=== PATIENT | male | born 1960 | race Caucasian/White ===

== ENCOUNTER 2017-08-29 00:36 | Day surgery (SDC) | payer BC ==
[~2017-08-29] VITALS: Ht 177.8 cm; Wt 77.1 kg
[~2017-08-29 00:36] MED LIST: BENZ2TAB48 PO; HALO5TAB17 PO; MEGE40TA19 PO; OLA5 PO
[2017-08-29] MEDS ORDERED: PROPOFOL EMUL(*) 10MG/ML 20 ML 40 ML ONE (07:42)
[2017-08-29] MEDS ORDERED: MIDAZOLAM 2 MG/2 ML VIAL IVP ONE (12:00)
[2017-08-29] MEDS ORDERED: LIDOCAINE/SOD BICARB 8.4% SYR ID ONE (12:00)
[2017-08-29] MEDS ORDERED: NORMOSOL R SOLN(*) 1000 ML BAG 1,000 ML IV PRN (12:00)
[2017-08-29 12:17] VITALS: BP 141/87
[2017-08-29 13:59] VITALS: BP 99/64
[2017-08-29 14:15] VITALS: BP 114/77
[2017-08-29 14:35] VITALS: BP 75/68
== END 2017-08-29 14:45 | disposition home or self-care (01) ==
LOC: OR 00:36
PROVIDERS: ATTEND Family Medicine
DX: Z12.11 Encounter for screening for malignant neoplasm of colon (principal)
CPT/HCPCS: 00812; 45378; J2704

== ENCOUNTER 2017-12-05 09:00 | Outpatient (RCR) | payer BC ==
--- NOTE | 2017-11-01 14:33 | PT INITIAL EVALUATION ---
MEDICAL DIAGNOSIS: C21.8 Parkinsonism TREATMENT DIAGNOSIS: G20 PD, altered gait and balance DATE OF ONSET: 10/21/17 SUBJECTIVE: Will Clifton presents to PT for altered gait, balance, reduced function for Parkinsonism. he hasn't seen a neurologist yet and hasn't started on PD medicine. he notes he started to get tremors in both hands and both legs six months ago. He lives alone in a single level home, no steps. Will notes getting out of a car, in/out of his tub is difficult due to balance, he has stiffness in walking, so has stopped running and exercising, and his handwriting has become shaky. He's left-handed. He denies pain. REHAB PROBLEM LIST: Decreased Strength, Endurance, Balance, Function, Altered Gait PREVIOUS MEDICAL HISTORY: PD (tremors B UE's, LE's for 6 months), anxiety OCCUPATION: Unemployed OBJECTIVE: Posture: Heels 4" apart, resting hand tremors. ROM: PROM LE's WNL. Strength: L DF 2+/5, R 3/5. Mobility: Independent. Gait: Dynamic Gait Index 21, not a fall risk. Will ambulates with a pause in stride when turning his head left, clears a 8" curb easily, turns with control. He has reduced push off L, but at a fast cadance has B UE swing WNL. Balance: Rodriguez Balance Assessment 51/56. Tandem stand 25 seconds R, 20 second L, single leg stand 4 seconds L, R. Other Objective Findings: After 10 minutes of LSVT BIG exercise, O2 on room air 92%, HR 107. ASSESSMENT: Will Clifton presents with Modified Amadeo and Yahr Stage 2 of PD. He reported he was less stiff after LSVT BIG exercise. Short Term Goals 4 weeks: Will reports he can transfer out of a car smoothly and quickly, walk without trunk and LE stiffness, write in a larger, smoother manner, transfer in/out of tub with normal balance control, transfers sit to stand from low surface easily. Patient's Goals Alleviate stiffness in walking, exercise hard, improve writing and balance. PLAN: Patient to be seen for LSVT BIG therapy with Neuromuscular Re-ed, Gait Trg/Balance Trg 4x/Week for 4 Weeks Thank you for this referral. If you have any questions, comments, or concerns about this report or plan, please contact me at . [facility]
--- NOTE | 2017-11-27 08:20 | PT PLAN OF CARE ---
Physician: Jagruti Soto PA-C Patient is being seen: 4x/week Therapist: Margaret Alvarez, ROMINA Medical Diagnosis: C21.8 Parkinsonism Treatment Diagnosis: G20 PD, altered gait and balance Date of Onset: 10/21/17 Date of Initial Evaluation: 11/01/17 Date patient was last seen: 11/26/17 Number of treatments: 11 Number of cancellations/No shows: 0 INTERVENTIONS: LSVT BIG Neuromuscular Re-ed and Gait Trg/Balance Trg GOALS: 4 weeks: Will reports he can transfer out of a car smoothly and quickly (met), walk without trunk and LE stiffness (progressing), write in a larger, smoother manner (progressing), transfer in/out of tub with normal balance control (met), transfers sit to stand from low surface easily (met). PATIENT'S GOAL: Alleviate stiffness in walking, exercise hard, improve writing and balance. all progressing Patient Compliance: Excellent Prognosis: Excellent Reasons for continuing therapy: S: Will relates he's walking daily at [place] without difficulty, transfers in/out of his tub easily now. Posture: Heels 4" apart, resting hand tremors. Gait: Will now ambulates with normal step length and can ambulates with change of speed easily. he turns with control, climbs hills and grass easily. Tinetti Gait and Balance /. Balance: Rodriguez Balance Assessment 56/56, a 5 point improvement. Mobility: Independent. Other: Shaguftas handwriting is still small and scratchy. He limbers up more quickly now with LSVT BIG exercises. A/P: Will Clifton is improving rapidly with LSVT BIG exercises. If you agree, we'll continue through this week and if he feels he can continue independently, I'll then DC PT to HEP. Thank you. YENNY
--- NOTE | 2017-12-10 14:24 | PT PLAN OF CARE ---
Physician: Jagruti Soto PA-C Patient is being seen: 4x/week Therapist: Margaret Alvarez, ROMINA Medical Diagnosis: C21.8 Parkinsonism Treatment Diagnosis: G20 PD, altered gait and balance Date of Onset: 10/21/17 Date of Initial Evaluation: 11/01/17 Date patient was last seen: 12/05/17 Number of treatments: 17 Number of cancellations/No shows: 0 INTERVENTIONS: Neuromuscular Re-ed Gait Trg/Balance Trg GOALS: 4 weeks: Will reports he can transfer out of a car smoothly and quickly ( met), walk without trunk and LE stiffness (met), write in a larger, smoother manner (not met), transfer in/out of tub with normal balance control (met), transfers sit to stand from low surface easily (met). PATIENT'S GOAL: Alleviate stiffness in walking (met), exercise hard (met), improve writing (not met) and balance (met). Patient Compliance: Excellent Prognosis: Excellent Reasons for discontinuing therapy: S: Will Clifton has completed LSVT BIG and relates his mobility is much improved. He'd like to hike with [facility] [employer] [facility] [employer]. O: Gait/Mobility: Will now ambulates with longer step length, normal arm swing B, feet passing each other, with balance control on uneven surfaces, hills , curbs and stairs. He's able to stand from a low surface easily and demonstrates normal tub transfers. Dynamic Gait Index . Balance: Will demonstrates normal balance reactions, is able to stand on one leg with control 10+ seconds, L and R. He can arise off the floor without assistance. Other: Shaguftas handwriting remains shaky and small, the only item in his LSVT BIG program that didn't change. A/P: Will Clifton has progressed better than average with LSVT BIG training. I recommend he participate in hiking with [employer] ( Fridays) as well as his LSVT BIG daily home exercise program (HEP). I'll DC PT to HEP. LSVT BIG research shows the trainings are effective for 6 months. I recommend Will return in 6 months for a LSVT BIG tune up. Thank you. YENNY
== END 2017-12-05 18:00 | disposition home or self-care (01) ==
LOC: PT 09:00
PROVIDERS: ATTEND Family Medicine
DX: G20 Parkinson's disease (principal); F41.9 Anxiety disorder, unspecified
CPT/HCPCS: 97162

== ENCOUNTER 2018-03-04 10:26 | Outpatient (RCR) | payer BC ==
[~2018-03-04] VITALS: Ht 177.8 cm; Wt 61.2 kg
--- NOTE | 2018-03-04 14:31 | Medical Nutrition Therapy ---
Nutrition Anthropometrics Height (Inches): 70 (stated) Weight (Pounds): 135 (with shoes on standing scale) BMI: 19.3 Redd Nutrition Score: Redd Nutrition Risk Score: Dietary Referral Nutrition Risk Factors: Nutrition Risk Comment: Nutrition/Food History Breakfast: oatmeal with pro powder, 1/c can slim fast Lunch: 1/2 bage with pg 1/c pop, or tomatoe amna, veggie, pop Dinner: yogurt, milk, banana Snacks: fruit punch, pie Nutritional Education Nutrition Education Topic: Other (diet for wt gain ) Learning Barriers: Emotional (case management specialist states pt has anxiety) Learning Readiness: Interested Teaching Methods: Discussion, Handout Response to Teaching: Verbalize understanding Teaching Recipient: Patient, Legal Guardian Nutrition Counseling: late entry of 03/03: Pt/annual campaign manager states pt has trouble with jaw that he can't open it well and jaw hurts if has to chew very much. Pt has lost from a wt of 170# in Jun 2017 but has been more significant past 3 weeks when he has been consuming mostly liqids. annual campaign manager states pt has anxiety issues which may be contibuting to jaw pain. Pt also is very active and paces throughout the day. Pt tracked intake past 3 day with averge of 1578. Calculated pt's kcal needs at current wt as 1900. Recommend pt try for 2200- 2400 kcal to help with wt gain. Developed meal plan with pt and case management specialist of of 6 meal/snacks per day with ~ 2600 kcal using mostly liquids with some soft foods. Pt will consume nutr supplment at 6:00 am and 10:00 Pm, have pro fort oatmeal with cream or half and half at 10:00AM. At 1:00 PM pt will eat high fat yogurt and fruit juice or v8 fuision. Pt will make a high kcal smoothie 3:30 and will have pie, milkshake, or other foods as desired at 7:30. Nutrition Monitoring & Eval RD Patient Assessment Time: [address] Assessment Type: RD Education Nutritional Comment: Povided 60 minutes education for wt gain following significant unplanned wt loss. Copies To Copies to: CHRISTAL MIN BETH Mar 04, 2018 14:31
[2018-03-25] MEDS ORDERED: ZIPR40CA14 PO (20:24)
[2018-03-25] MEDS ORDERED: FLUV150C PO (20:24)
[2018-03-25] MEDS ORDERED: PROP20TA56 PO (20:24)
[2018-03-27] MEDS ORDERED: ZIPR40CA12 PO (10:43)
[2018-04-01] MEDS ORDERED: DOCU-416 PO (08:58)
[2018-04-01] MEDS ORDERED: FLUV100T21 PO ×2 (08:59→09:00)
[2018-04-01] MEDS ORDERED: CHLO25TA19 PO (09:02)
[2018-04-01] MEDS ORDERED: IBUP-1671 PO (09:04)
== END 2018-04-08 ==
LOC: DIET 10:26
PROVIDERS: ATTEND Nurse Practitioner Psychiatric/Mental Health
DX: Z71.3 Dietary counseling and surveillance (principal); R63.4 Abnormal weight loss; Z68.1 Body mass index [BMI] 19.9 or less, adult; R68.84 Jaw pain
CPT/HCPCS: 97802

== ENCOUNTER → 2018-03-20 | Outpatient (REF) | payer BC | LOC: ZZSENDIN 16:28 | PROVIDERS: ATTEND Family Medicine | DX: R63.4 Abnormal weight loss (principal) | CPT/HCPCS: 85651 ==

== ENCOUNTER 2018-03-25 15:29 | Inpatient (IN) | payer BC ==
[~2018-03-25] VITALS: Ht 177.8 cm; Wt 56.7 kg
[2018-03-25 16:00] VITALS: BP 128/82
[2018-03-25] MEDS ORDERED: PROP20TA56 PO (20:24)
[2018-03-25] MEDS ORDERED: ZIPR40CA14 PO (20:24)
[2018-03-25] MEDS ORDERED: FLUV150C PO (20:24)
[2018-03-25 20:25] VITALS: BP 121/81
[2018-03-25] MEDS: fluvoxaMINE MALEATE 50 MG TAB PO SCH (20:44)
[2018-03-25] MEDS ORDERED: HALOPERIDOL 1 MG TAB PO ONE (21:00)
[2018-03-26] MEDS: IBUPROFEN 600 MG TAB PO PRN (05:20)
[2018-03-26 06:02] VITALS: BP 105/76
[2018-03-26 10:10] VITALS: BP 113/75
[2018-03-26] MEDS ORDERED: BISACODYL 5 MG TABEC PO ONE (11:25)
[2018-03-26] MEDS: fluvoxaMINE MALEATE 50 MG TAB PO SCH ×2 (11:47→20:26)
[2018-03-26 14:12] VITALS: BP 112/69
[2018-03-26] MEDS: DOCUSATE SODIUM 100 MG CAP PO SCH (20:26)
[2018-03-26 20:30] VITALS: BP 107/69
[2018-03-26] MEDS ORDERED: HALOPERIDOL 5 MG TAB PO SCH (21:00)
[2018-03-27 05:20] VITALS: BP 114/77
[2018-03-27] MEDS: DOCUSATE SODIUM 100 MG CAP PO SCH ×2 (08:18→21:09)
[2018-03-27] MEDS: fluvoxaMINE MALEATE 50 MG TAB PO SCH ×2 (08:18→21:09)
[2018-03-27] MEDS ORDERED: ZIPR40CA12 PO (10:43)
--- NOTE | 2018-03-27 10:43 | BHS Progress Note ---
S - Subjective Progress Notes Subjective Patient reporting difficulty sleeping last PM, staff noted patient to be peering down hallway in a rather bazaar manner. Patient agrees to try thorazine, for better control of symptoms of poor sleep and less EPS. Patient himself denies any other symptoms of psychiatric concern. No self harm, and no para-suicidal behaviors. Suicidal Ideation: None Homicidal Ideation: None [facility] - Objective Physical Exam Vital Signs Vital Signs Date Time Temp Pulse Resp B/P (MAP) Pulse Ox O2 Delivery O2 Flow Rate FiO2 03/27/18 05:20 98.6 71 16 114/77 (89) 92 Room Air Muscle Strength and Tone: Other (hesitant gate at times) Gait and Station: Steady [facility] Medications Reviewed: Side Effects, Benefits of Medication, Risks Allergies Reviewed: Yes Mental Status Exam General Appearance: Casual, Good Eye Contact, Cooperative, Polite, Good Interaction; No Tearful, No Psychomotor Agitation, No Psychomotor Retardation; Bizarre Mannerisms (some); No Tics Speech: Clear, Spontaneous, Normal Rate, Normal Rhythm, Normal Volume, Normal Tone; No Delayed, No Slurred, No Garbled, No Rambling, No Inappropriate Mood: Euthymic (reports okay) Affect: Neutral, Anxious Thought Process: No Loose Associations, No Flight of Ideas Thought Content: No Suicidal Ideation, No Homicidal Ideation, No Delusions; Auditory Halllucinations (likely minimal, patient denies); No Visual Halluc inations, No Thought Broadcasting, No Ideas of Reference, No Obsessions, No Compulsions Sensorium: Clear Cognition: Alert & Oriented-Person, Alert & Oriented-Place, Alert & Oriented- Time, Utngc-Krllmnza-Gqpjyfasx Memory: Immediate, Recent, Remote Intelligence: Average Insight Judgment: Fair (limited currently, but much improvement over the recent years overall. ) [facility] Assessment and Plan Cqzj-le-Bqsy Encounter Date: Mar 27, 2018 Fsss-ug-Wbvg Encounter Time: 09:00 [facility] Plan: Necessary Precautions, Individual/Group Therapy, Admin/Titrate Meds, Educate Patient Tobacco Medications: Not Appropriate Condition Multpiple Antipsychotics Used: No Problems: (1) Generalized anxiety disorder Status: Chronic (2) Paranoid schizophrenia Status: Chronic Condition 1. will stop haldol. 2. start thorazine. TAN VO MD Mar 27, 2018 10:43
[2018-03-27 11:25] VITALS: BP 112/67
--- NOTE | 2018-03-27 13:36 | SCHAAF H&P ---
DATE OF ADMISSION: March 25, 2018 Time of this dictation is approximately 0900 hours on March 26, 2018. PRESENTING PROBLEM, CHIEF COMPLAINT Patient under guardianship brought in for admission for exacerbation of psychotic illness and anxiety. HISTORY OF PRESENT ILLNESS This is a 57-year-old male living independently in the [facility]. Patient has a history of paranoia schizophrenia as well as generalized anxiety disorder. Patient most recently on the [facility] Unit in 2010. At that time, patient was suffering from significant and severe psychosis. Since that time, patient has not required anymore hospitalizations at [facility] or anywhere else on an inpatient unit. Patient has been doing relatively well and following up with outpatient providers. Recent medication changes from Haldol to Geodon by outpatient provider may have implicated recent exacerbations of both anxiety and return of psychosis. Patient noted to have some superficial wounds in that patient apparently engaged in self-harm with X-Acto knife. When asked why the patient did this, he said "I was angry and cut myself", patient quickly pointing out it was not suicidal and "I do not feel depressed, I was just angry". Patient noted to have his father, whom he had lived with for many years, pass away in 2015. Patient, other than that, reporting "I have a problem with anxiety", although patient also reporting that it is much improved since this provider knew the patient on an outpatient basis years ago. Patient denying any symptoms of depression or tenzin. When asked about any psychotic symptoms, patient reported none but then reported that people are coming in his home. Patient seeming to try to give a logical explanation for how he knows that these unknown entities are coming into his home by explaining there is feces on the bathroom floor and that patient had been left money in his drawer. Patient denying any other symptoms of psychiatric concern. MENTAL HEALTH HISTORY The patient was hospitalized in 2010 here for initial hospitalization of what appeared to be a longstanding psychosis. Patient had been living at home at that time. Since that time, patient continues to do well. Patient is following up currently with Paola Padron, his outpatient medication provider and [facility] has been following patient closely in the home. Patient had a suicide attempt where he had cut his wrist in the remote history and also patient had been admitted to psychiatric wards in the past prior to this last hospitalization here at [facility] in 2010. FAMILY PSYCHIATRIC HISTORY Past reports indicate possible schizophrenic type illness in the patient's great grandmother on the mother's side. Mother and father had some history of alcohol abuse independence as well and no suicides are believed to have occurred in the family history. PAST MEDICAL HISTORY In 2010, the patient was noted to have extremely limited gait as a result of psychotic condition. Patient seems to have some hesitant gait now as well. These may or may not be related to complications from longstanding antipsychotic therapy. Patient reported a seizure in 1986 not related to alcohol detoxification. SOCIAL HISTORY The patient was born in [place] and raised in [place]. Parents were at time of his . Past reports indicate his mother in 1986 and patient's father is believed to have passed within the last year. He was the only child in his family. He continues to live at home now. It is not known if patient is on disability right now but patient does have a guardian. Patient was a high school graduate, was reported to be an average to above-average student according to his father in the past. 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 Patient is not believed to have a significant other now. It is believed he is heterosexual. He has never and has no children. LEGAL HISTORY No significant legal history. SUBSTANCE ABUSE HISTORY Patient had reported in the past heavy drinking until approximately 2001 or 2002. He does not use cigarettes and does not use alcohol now. He denies any other past or present history of substance abuse. PHYSICAL EXAMINATION Please see emergency room note, notable for thin 57-year-old male who appears approximately stated age. No acute medical distress. Vital signs at the time of admission: Temperature 97.8, respiratory rate 20, blood pressure 115/72, pulse oximetry 96% on room air. LABORATORY DATA CBC notable for white blood cells slightly low at 4.3, hematocrit 41.1 and low. Chemistry panel overall unremarkable. TSH 2.03. Urinalysis unremarkable on toxicology screen. Positive for tricyclics (this is likely a false positive) and negative for other substances of abuse with a nondetectable serum alcohol level. MENTAL STATUS EXAMINATION GENERAL APPEARANCE, BEHAVIOR AND ATTITUDE: This is thin, adequately groomed male, 57 years old who appears roughly stated age. No gross psychomotor agitation or retardation noted. Bizarre mannerisms that have improved significantly since patient was last seen by this provider on an outpatient basis a few years ago. SPEECH: Largely within normal limits. MOOD: Patient stated good. Outpatient [facility] states that patient may have had decompensating mood prior to admission. AFFECT: Neutral, overall mood-congruent. THOUGHT PROCESSES: Appeared goal-directed and fairly logical. Patient agreeing to stay on the Unit to get help, although patient having difficulty describing what he would need help for. No loose associations or flight of ideas were detected. THOUGHT CONTENT: Patient denying auditory or visual hallucinations, although it is possible that some minimal hallucinations remain in this patient who had long-term schizophrenic process. Patient denying any suicidal or homicidal ideations. SENSORIUM: Clear. COGNITION: Alert and oriented to person, place and time, mostly to situation. MEMORY: Immediate, recent and remote estimated intact. INTELLIGENCE: Historically average, based on previous knowledge of this patient. INSIGHT AND JUDGMENT: Currently limited and requiring further evaluation. ASSESSMENT This is a 57-year-old male very cooperative on the unit. Patient having longstanding chronic persisting mental illness. Patient being followed appropriately in the community. Recent exacerbation of illness and recent med change from Haldol to Geodon. We will continue to evaluate and make medication changes as necessary. DIAGNOSES Generalized anxiety disorder, rule out obsessive compulsive disorder. Patient has a history of schizophrenia and supportive treatment in the community. PLAN 1. Admit to the Unit. 2. Necessary precautions will be implemented. 3. The patient will participate in individual and group therapy. 4. Medications will be titrated accordingly. 5. Collateral information to be obtained as necessary. 6. Estimated length of stay five to seven days. MTDD
[2018-03-27] MEDS: IBUPROFEN 600 MG TAB PO PRN (15:59)
[2018-03-27] MEDS ORDERED: chlorproMAZINE 25 MG TAB PO SCH (21:00)
[2018-03-28 02:04] VITALS: BP 118/78
[2018-03-28] MEDS: fluvoxaMINE MALEATE 50 MG TAB PO SCH ×2 (08:08→21:32)
[2018-03-28] MEDS: DOCUSATE SODIUM 100 MG CAP PO SCH ×2 (08:08→21:32)
--- NOTE | 2018-03-28 11:15 | BHS Progress Note ---
BHS - Subjective Progress Notes Subjective Patient reporting some over sedation from thorazine last PM. Will decrease dose to 50 mg tonight. Patient notably able to eat breakfast today, but continues to complain of right sided TMJ located pain, patient has history of poor dentition as well, and significant weight loss. Will get imaging today. Will have occult stool blood in this chronically constipated patient. Patient states constipation is now resolved. Will continue treatment. Suicidal Ideation: None Homicidal Ideation: None [facility] - Objective Physical Exam Vital Signs Vital Signs Date Time Temp Pulse Resp B/P (MAP) Pulse Ox O2 Delivery O2 Flow Rate FiO2 03/28/18 02:04 98.4 64 118/78 (91) 92 Room Air 03/27/18 05:20 16 Hematology Test 03/25/18 13:29 03/26/18 13:29 Iron Level 55 ug/dl (49-181) Total Iron Binding Capacity 241 ug/dl (261-497) Percent Iron Saturation 22.8 % Ferritin 431 ng/ml (18-464) Vitamin B12 Level 493 pg/mL (180-914) Folate >22.3 ng/mL (>=5.9) Free Thyroxine 1.07 ng/dl (0.78-2.19) Free Triiodothyronine 2.0 pg/mL (2.4-4.2) Vitamin D 1,25-Dihydroxy 53.1 pg/mL (19.9-79.3) Chemistry Test 03/25/18 13:29 03/26/18 13:29 Iron Level 55 ug/dl (49-181) Total Iron Binding Capacity 241 ug/dl (261-497) Percent Iron Saturation 22.8 % Ferritin 431 ng/ml (18-464) Vitamin B12 Level 493 pg/mL (180-914) Folate >22.3 ng/mL (>=5.9) Free Thyroxine 1.07 ng/dl (0.78-2.19) Free Triiodothyronine 2.0 pg/mL (2.4-4.2) Vitamin D 1,25-Dihydroxy 53.1 pg/mL (19.9-79.3) Muscle Strength and Tone: Other (hesitant gate at times) Gait and Station: Steady [facility] Medications Reviewed: Side Effects, Benefits of Medication, Risks Allergies Reviewed: Yes Mental Status Exam General Appearance: Casual, Good Eye Contact, Cooperative, Polite, Good Interaction; No Tearful, No Psychomotor Agitation, No Psychomotor Retardation; Bizarre Mannerisms (some); No Tics Speech: Clear, Spontaneous, Normal Rate, Normal Rhythm, Normal Volume, Normal Tone; No Delayed, No Slurred, No Garbled, No Rambling, No Inappropriate Mood: Euthymic (reports okay, but tired from thorazine) Affect: Neutral, Anxious Thought Process: Goal Directed; No Loose Associations, No Flight of Ideas Thought Content: No Suicidal Ideation, No Homicidal Ideation, No Delusions; Auditory Halllucinations (likely minimal, patient denies); No Visual Hallucinations, No Thought Broadcasting, No Ideas of Reference, No Obsessions, No Compulsions Sensorium: Clear Cognition: Alert & Oriented-Person, Alert & Oriented-Place, Alert & Oriented- Time, Hyrgt-Vettpstj-Yldryrqrt Memory: Immediate, Recent, Remote Intelligence: Average Insight Judgment: Fair (limited currently, but much improvement over the recent years overall. ) [facility] Assessment and Plan Lvyz-pr-Odem Encounter Date: Mar 28, 2018 Oxqk-tq-Jabo Encounter Time: 10:00 [facility] Plan: Necessary Precautions, Individual/Group Therapy, Admin/Titrate Meds, Educate Patient Tobacco Medications: Not Appropriate Condition Multpiple Antipsychotics Used: No Problems: (1) Generalized anxiety disorder Status: Chronic (2) Paranoid schizophrenia Status: Chronic Condition 1. decrease thorazine to 50mg. 2. imaging of head/jaw today TAN VO MD Mar 28, 2018 11:15
--- NOTE | 2018-03-28 13:50 | RADIOLOGY IMAGING REPORT ---
FACILITY: [facility] [place] PATIENT NAME: Will Clifton : 1960 MR: [id number] V: [id number] EXAM DATE: ORDERING PHYSICIAN: TAN VO TECHNOLOGIST: Location: [facility] [place] Patient: Will Clifton : 1960 Visit/Account:[id number] Date of Sevice: 03/28/[address] scan without contrast COMPARISONS: None ADDITIONAL PERTINENT HISTORY: Altered mental status TECHNIQUE: Multiple axial images were obtained from the skull base to the vertex without IV contrast . One of the following dose optimization techniques was utilized in the performance of this exam: Aut omated exposure control; adjustment of the mA and/or kV according to the patient's size; or use of an iterative reconstruction technique. Specific details can be referenced in the facility's radiology CT exam operational policy. FINDINGS: Midline shift: Negative Ventricles: Negative Brain parenchyma: Patchy hypoattenuation within the periventricular and subcortical white matter, no nspecific but likely representing small vessel ischemic change on a chronic basis. No intraparenchym al hemorrhage or mass effect. Extra-axial spaces: Mild cerebral atrophy. Intracranial vasculature: Cavernous internal carotid and distal vertebral artery calcifications. Ot herwise negative Osseous structures: Negative Paranasal sinuses and mastoid air cells: Negative Surrounding soft tissues and orbits: Negative IMPRESSION: 1. Age related changes as described above. 2. No evidence of acute intracranial pathology. Report Dictated By: Oumar Orta MD at 03/28/2018 1:44 PM Report E-Signed By: Oumar Orta MD at 03/28/2018 1:46 PM [id number]
--- NOTE | 2018-03-28 13:54 | RADIOLOGY IMAGING REPORT ---
FACILITY: PATIENT NAME: Will Clifton : 1960 MR: [id number] V: [id number] EXAM DATE: ORDERING PHYSICIAN: TAN VO TECHNOLOGIST: Location: [facility] Patient: Will Clifton : 1960 Visit/Account:[id number] Date of Sevice: 03/28/2018 CT face without contrast Comparison: None Additional pertinent history: Right jaw tightness and pain. Difficulty chewing TECHNIQUE: Multiple axial images were obtained through the facial bones without IV contrast. Whitley l and sagittal reformatted images were obtained off the axial source data. One of the following dose optimization techniques was utilized in the performance of this exam: Automated exposure control; ad justment of the mA and/or kV according to the patient's size; or use of an iterative reconstruction technique. Specific details can be referenced in the facility's radiology CT exam operational policy . FINDINGS: Zygomas/zygomatic arches:Negative Krueger of the orbits: Negative Orbital floors: Negative Krueger of the paranasal sinuses: Negative Pterygoid plates: Negative Nasal bones/nasal septum: Moderate nasal septal deviation to the right. Otherwise negative Maxilla: Negative Mandible: Negative Orbits: Negative Paranasal sinuses: Negative Surrounding soft tissues: Negative IMPRESSION: 1. No evidence of acute bony abnormality involving the facial bones. 2. No other surrounding abnormality noted. Report Dictated By: Oumar Orta MD at 03/28/2018 1:46 PM Report E-Signed By: Oumar Orta MD at 03/28/2018 1:51 PM WSN:[id number]
[2018-03-28 14:00] VITALS: BP 102/58
[2018-03-28] MEDS: IBUPROFEN 600 MG TAB PO PRN (16:11)
[2018-03-28] MEDS: chlorproMAZINE 25 MG TAB PO SCH (21:32)
[2018-03-29 06:45] VITALS: BP 110/62
[2018-03-29] MEDS: fluvoxaMINE MALEATE 50 MG TAB PO SCH ×2 (08:26→20:43)
[2018-03-29] MEDS: DOCUSATE SODIUM 100 MG CAP PO SCH ×2 (08:26→20:43)
--- NOTE | 2018-03-29 09:45 | BHS Progress Note ---
[facility] - Subjective Progress Notes Subjective "I'm good." Reports slept well last night. His jaw hurts this am from clenching and he requests Ensure with meals. He denies hallucinations. Denies SI/HI. Suicidal Ideation: None Homicidal Ideation: None [facility] - Objective Physical Exam Vital Signs Vital Signs 03/28/18 03/29/18 14:00 06:45 Temp 98.2 Pulse 69 Resp 16 B/P (MAP) 110/62 (78) Pulse Ox 92 O2 Delivery Room Air Muscle Strength and Tone: Other (hesitant gate at times) Gait and Station: Steady [facility] Medications Reviewed: Side Effects, Benefits of Medication, Risks Allergies Reviewed: Yes Mental Status Exam General Appearance: Casual, Good Eye Contact, Cooperative, Polite, Good Interaction; No Tearful, No Psychomotor Agitation, No Psychomotor Retardation; Bizarre Mannerisms (some); No Tics Speech: Clear, Spontaneous, Normal Rate, Normal Rhythm, Normal Volume, Normal Tone; No Delayed, No Slurred, No Garbled, No Rambling, No Inappropriate Mood: Euthymic (reports okay, but tired from thorazine) Affect: Neutral, Anxious Thought Process: Goal Directed; No Loose Associations, No Flight of Ideas Thought Content: No Suicidal Ideation, No Homicidal Ideation, No Delusions; Auditory Halllucinations (likely minimal, patient denies); No Visual Halluc inations, No Thought Broadcasting, No Ideas of Reference, No Obsessions, No Compulsions Sensorium: Clear Cognition: Alert & Oriented-Person, Alert & Oriented-Place, Alert & Oriented- Time, Jkrqn-Ryccgayg-Zjumqnebp Memory: Immediate, Recent, Remote Intelligence: Average Insight Judgment: Fair (limited currently, but much improvement over the recent years overall. ) [facility] Assessment and Plan Xjsa-[id number]-[id number] Encounter Date: Mar 29, 2018 Shmm-zt-Srxl Encounter Time: 08:30 [facility] Plan: Necessary Precautions, Individual/Group Therapy, Admin/Titrate Meds, Educate Patient Tobacco Medications: Not Appropriate Condition Multpiple Antipsychotics Used: No Problems: (1) Paranoid schizophrenia Status: Chronic (2) Generalized anxiety disorder Status: Chronic JAMAICA VEGA NP Mar 29, 2018 09:45
[2018-03-29 13:30] VITALS: BP 92/52
[2018-03-29 17:25] VITALS: BP 110/74
[2018-03-29] MEDS: chlorproMAZINE 25 MG TAB PO SCH (20:43)
[2018-03-29 23:52] VITALS: BP 118/76
[2018-03-30] MEDS ORDERED: chlorproMAZINE 25 MG TAB PO ONE (00:50)
[2018-03-30] MEDS: DOCUSATE SODIUM 100 MG CAP PO SCH ×2 (08:35→20:49)
[2018-03-30] MEDS: fluvoxaMINE MALEATE 50 MG TAB PO SCH ×2 (08:35→20:49)
[2018-03-30 09:00] VITALS: BP 112/64
--- NOTE | 2018-03-30 09:42 | BHS Progress Note ---
[facility] - Subjective Progress Notes Subjective "I couldn't sleep but then they gave me more medicine around 1 o'clock and then I slept." Client continues to believe that people had been putting money in his drawers at home, however he denies that these types of things are occurring here at the hospital. Denies a/v hallucinations. He is denying thoughts of self harm. Suicidal Ideation: None Homicidal Ideation: None [facility] - Objective Physical Exam Vital Signs Vital Signs 03/29/18 23:52 Temp 98.9 Pulse 80 Resp 14 B/P (MAP) 118/76 (90) Pulse Ox 93 O2 Delivery Room Air Muscle Strength and Tone: Other (hesitant gate at times) Gait and Station: Steady [facility] Medications Reviewed: Side Effects, Benefits of Medication, Risks Allergies Reviewed: Yes Mental Status Exam General Appearance: Casual, Good Eye Contact, Cooperative, Polite, Good Interaction; No Tearful, No Psychomotor Agitation, No Psychomotor Retardation; Bizarre Mannerisms (some); No Tics Speech: Clear, Spontaneous, Normal Rate, Normal Rhythm, Normal Volume, Normal Tone; No Delayed, No Slurred, No Garbled, No Rambling, No Inappropriate Mood: Euthymic (reports okay, but tired from thorazine) Affect: Neutral, Anxious Thought Process: Goal Directed; No Loose Associations, No Flight of Ideas Thought Content: No Suicidal Ideation, No Homicidal Ideation; Delusions (believes money and food were being placed in his home, putting feces on his floor), Auditory Halllucinations (likely minimal, patient denies); No Visual Hallucinations, No Thought Broadcasting, No Ideas of Reference, No Obsessions, No Compulsions Sensorium: Clear Cognition: Alert & Oriented-Person, Alert & Oriented-Place, Alert & Oriented- Time, Bmunw-Ntgavdyt-Xtjvmdfvk Memory: Immediate, Recent, Remote Intelligence: Average Insight Judgment: Fair (limited currently, but much improvement over the recent years overall. ) [facility] Assessment and Plan Ahqb-nl-Fnzk Encounter Date: Mar 30, 2018 Ioga-nw-Fzhe Encounter Time: 09:25 [facility] Plan: Necessary Precautions, Individual/Group Therapy, Admin/Titrate Meds, Educate Patient Tobacco Medications: Not Appropriate Condition Multpiple Antipsychotics Used: No Problems: (1) Paranoid schizophrenia Status: Chronic (2) Generalized anxiety disorder Status: Chronic JAMAICA VEGA NP Mar 30, 2018 09:42
[2018-03-30] MEDS: chlorproMAZINE 25 MG TAB PO SCH (20:48)
[2018-03-30 20:58] VITALS: BP 102/62
[2018-03-31 05:35] VITALS: BP 105/63
[2018-03-31] MEDS: DOCUSATE SODIUM 100 MG CAP PO SCH ×2 (07:53→20:34)
[2018-03-31] MEDS: fluvoxaMINE MALEATE 50 MG TAB PO SCH ×2 (07:53→20:34)
[2018-03-31] MEDS ORDERED: fluvoxaMINE MALEATE 50 MG TAB PO ONE (10:15)
--- NOTE | 2018-03-31 11:15 | BHS Progress Note ---
[facility] - Subjective Progress Notes Subjective Patient symptoms continue to improve, will tentatively plan on discharge tomorrow to be followed by [facility] program, and other outpatient providers. Patient denies any other complaints today. Will increase luvox to 100 AM and 150 QHS. Suicidal Ideation: None Homicidal Ideation: None [facility] - Objective Physical Exam Vital Signs Vital Signs Date Time Temp Pulse Resp B/P (MAP) Pulse Ox O2 Delivery O2 Flow Rate FiO2 03/31/18 05:35 99.0 65 105/63 (77) 93 Room Air 03/30/18 09:00 14 Muscle Strength and Tone: Other (hesitant gate at times) Gait and Station: Steady [facility] Medications Reviewed: Side Effects, Benefits of Medication, Risks Allergies Reviewed: Yes Mental Status Exam General Appearance: Casual, Good Eye Contact, Cooperative, Polite, Good Interaction; No Tearful, No Psychomotor Agitation, No Psychomotor Retardation; Bizarre Mannerisms (some); No Tics Speech: Clear, Spontaneous, Normal Rate, Normal Rhythm, Normal Volume, Normal Tone; No Delayed, No Slurred, No Garbled, No Rambling, No Inappropriate Mood: Euthymic (reports okay,) Affect: Neutral, Anxious Thought Process: Goal Directed; No Loose Associations, No Flight of Ideas Thought Content: No Suicidal Ideation, No Homicidal Ideation; Delusions (belie ves money and food were being placed in his home, putting feces on his floor), Auditory Halllucinations (likely minimal, patient denies); No Visual Hallucinations, No Thought Broadcasting, No Ideas of Reference, No Obsessions, No Compulsions Sensorium: Clear Cognition: Alert & Oriented-Person, Alert & Oriented-Place, Alert & Oriented-Time, Fqnoc-Rhgxquff-Yeilcijci Memory: Immediate, Recent, Remote Intelligence: Average Insight Judgment: Fair (limited currently, but much improvement over the recent years overall. ) [facility] Assessment and Plan Hxta-uw-Dhao Encounter Date: Mar 31, 2018 Yuhy-cd-Hmzx Encounter Time: 10:00 [facility] Plan: Necessary Precautions, Individual/Group Therapy, Admin/Titrate Meds, Educate Patient Tobacco Medications: Not Appropriate Condition Multpiple Antipsychotics Used: No Problems: (1) Generalized anxiety disorder Status: Chronic (2) Paranoid schizophrenia Status: Chronic Condition 1. increase luvox. 2. tentative plan for discharge in AM. TAN VO MD Mar 31, 2018 11:15
[2018-03-31 14:40] VITALS: BP 121/79
[2018-03-31] MEDS: chlorproMAZINE 25 MG TAB PO SCH (20:34)
[2018-03-31 22:34] VITALS: BP 102/55
[2018-04-01 06:14] VITALS: BP 116/74
[2018-04-01] MEDS: DOCUSATE SODIUM 100 MG CAP PO SCH (08:07)
[2018-04-01] MEDS ORDERED: DOCU-416 PO (08:58)
[2018-04-01] MEDS ORDERED: FLUV100T21 PO ×2 (08:59→09:00)
[2018-04-01] MEDS ORDERED: fluvoxaMINE MALEATE 50 MG TAB PO SCH (09:00)
[2018-04-01] MEDS ORDERED: CHLO25TA19 PO (09:02)
[2018-04-01] MEDS ORDERED: IBUP-1671 PO (09:04)
--- NOTE | 2018-04-02 14:18 | SCHAAF DISCHARGE ---
DATE OF ADMISSION: March 25, 2018 DATE OF DISCHARGE: April 01, 2018 ATTENDING PHYSICIAN Cruz Jorgensen MD Patient was seen at approximately 0900 hours on April 01, 2018 for note concerning this dictation. FINAL DIAGNOSES 1. Generalized anxiety disorder. 2. History of agoraphobia. 3. Schizophrenia Patient known to have good outpatient support through [facility]. . REASON FOR ADMISSION This is a 57-year-old male very pleasant throughout his stay and took an active role in his treatment. Patient is noted to be admitted secondary to superficial cuts to left side of neck. Patient engaged in superficial cutting after an episode of anger with an [employer] knife at his home where he lives. Patient historically doing much better than patient has done in the past overall. However, cuts to neck elicited concern. Patient was brought to the emergency room and admitted without incident. Patient has a guardian. The patient adamantly denying initially any suicidal attempt or depression. Patient was admitting that he was angry; patient vague as to why. The patient did have some relatively recent medication changes. The patient was switched from Haldol, which he had been on for quite some time, to Geodeon and patient continuing on Luvox for OCD and anxious type behaviors. Patient noted to be very thin and found to have significant constipation in the emergency room. Patient opened to drinking prune juice on the Unit. This resolved according to the patient. Patient appears to be an accurate historian overall and very cooperative with care. Patient was eventually placed on low-dose Thorazine at night to help with patient's reports of poor sleep and also patient's psychotic symptoms involving what patient described as people coming into his house to poop on the bathroom floor as well as leave money in a desk drawer. Patient's Luvox was increased with no negative side effects as well. Patient sleeping fine. No suicidal or parasuicidal behaviors were seen on the Unit. Patient remained very pleasant and cooperative throughout stay and patient was discharged to followup care. PHYSICAL EXAMINATION Please see emergency room note. Notable for thin, 57-year-old male. No acute medical distress. Cooperative in the ER with admission. Vital signs at the time of admission: Temperature 97.8, respiratory rate 20, blood pressure 115/72 and pulse oximetry 96% on room air. At time of discharge, vital signs showed temperature 97.9, pulse 72, respiratory rate 14, blood pressure 116/74 and pulse oximetry 93% on room air. LABORATORY DATA Stool occult blood was found to be negative. Iron noted to be at 55. Total iron binding capacity 241 and slightly low; percent saturation was 22.8. Ferritin 431, in normal range. Vitamin B12 493, in normal range. Vitamin D 25. Hydroxy was 53.1. Folate was within normal range. Free T3 was slightly low at 2.0 with a free T4 of 1.07. Urine drug screen was positive for tricyclics, likely a false positive on admission. Serum alcohol nondetectable. No other substances of abuse. Urinalysis unremarkable. TSH 2.03. Magnesium 2.3 and slightly elevated. White blood cell slightly low at 4.3. Hematocrit slightly low at 41.1. MENTAL STATUS EXAMINATION GENERAL APPEARANCE, BEHAVIOR AND ATTITUDE: This is very pleasant and cooperative 57-year-old male seemingly taking his time to report that symptoms had improved but patient appears to be an accurate historian. Patient making much improved eye contact as compared to years ago when this patient was known to this provider. Patient well groomed. Minimal bizarre mannerisms. SPEECH: Considered baseline for this patient. MOOD: Described as okay. AFFECT: Full and mood congruent at times. Patient is able to recognize subtle humor. THOUGHT PROCESSES: Appear goal-directed, logical. Patient wishing to go back home. No loose associations or flight of ideas. THOUGHT CONTENT: Patient denying any outright auditory or visual hallucinations, ideas of reference, thought broadcastings. Patient may have some delusional qualities ongoing concerning visitors in his home and may have minimal obsessive compulsive type behaviors as well including calorie counting. Denying any suicidal or homicidal ideation. SENSORIUM: Clear. COGNITION: Alert and oriented to person, place, time and situation. MEMORY: Immediate, recent and remote was estimated intact. INTELLIGENCE: Average, based on interview. INSIGHT AND JUDGMENT: Considered grossly intact and appropriate for ongoing outpatient care with close observation by [facility]. RESULTS OF TESTING Imaging: CT scan of head as well as face was done as patient was indicating ongoing right sided jaw pain that made chewing difficult. No gross abnormalities were found. Patient is known to have recently visited dentists and had tooth extraction. This may correlate to patient's focus on jaw pain versus any extrapyramidal symptoms from long-term antipsychotic use, which could also be present. Patient had abdominal x-ray on admission that showed a moderate to large amount of fecal material seen in the colon, consistent with constipation upon admission. Some age-related mild cerebral atrophy was present on CT of the brain but overall facial CT was negative for any gross abnormality. Laboratory data: See above. CONSULTATIONS None. TREATMENT Patient received medications, did participate in individual and group therapy and overall took a very active role in his treatment. HOSPITAL COURSE Patient's recent poor sleep seemed to respond to the use of Thorazine at 75 mg at bedtime. Geodon was discontinued. Patient's propranolol he had been taking for tremor was discontinued as well due to hypotensive concerns. Patient noted to have no resting tremor that was obvious. Patient had some cogwheeling in wrist, likely related to long-term antipsychotic use. Patient was able to eat and chew food at times. Patient's constipation resolved. CONDITION OF PATIENT ON DISCHARGE Stable. Considered a minimal risk to himself or others. Patient showing no evidence of self-harm activities while on the Unit and no aggression towards others. The patient was discharged to home. DISPOSITION The patient was discharged to home care and close monitoring by [facility] staff. The patient would follow up with Paola Padron and [facility]. The patient was recommended to stick with one medical provider. He will follow up with dental appointment for further evaluation of jaw pain. The patient was given the Crisis Line should symptoms return. The patient was encouraged to stay on Colace 100 mg twice daily. Patient could take ibuprofen 600 mg every six hours as needed for pain. Patient would take chlorpromazine 325 mg tablets p.o. at bedtime one hour before intention to go to sleep. The patient would remain on fluvoxamine 100 mg every a.m. and fluvoxamine 150 mg total dose at bedtime one hour before intention to go to sleep. It was recommended that patient hold propranolol for now due to hypotensive concerns. The patient would stop Geodon. It was also recommended that patient have trial with outpatient provider on tetrabenazine to see if any resolution of potential ETS symptoms could be obtained. Patient would follow up with potential hypothyroidism with outpatient provider as well in this patient with low normal TSH in the presence of low T3. Patient would consider use of appetite stimulant such as Megace if necessary if weight loss continued. Potential evaluation for any kind of malignancy in this patient was also recommended. Patient stool occult blood was noted to be negative. Patient stating that overall he has been eating well at home, watching his calories, but patient did not give an adequate recognizable reason for recent significant weight loss. The risks, benefits and alternatives of the above discharge plan were discussed. Informed consent was given to proceed with the above discharge plan by this patient. Patient's guardian, [facility] and patient's outpatient provider, Kristel Whiting and [facility], were contacted with recommendations. YENNY
== END 2018-04-01 09:42 | DRG 885 ==
LOC: BHS 15:29
PROVIDERS: ADMIT Psychiatry & Neurology Psychiatry; ATTEND Psychiatry & Neurology Psychiatry
DX: F20.0 Paranoid schizophrenia (principal); F41.1 Generalized anxiety disorder; R68.84 Jaw pain; K59.00 Constipation, unspecified; R63.4 Abnormal weight loss; S11.81XA Laceration without foreign body of other specified part of neck, initial encounter; X78.1XXA Intentional self-harm by knife, initial encounter
CPT/HCPCS: 70450; 70486; 82274; 82607; 82652; 82728; 82746; 83540; 83550; 84439; 84481; Q0161

== ENCOUNTER 2018-06-23 11:15 | Outpatient (RCR) | payer BC ==
--- NOTE | 2018-04-23 07:40 | PT INITIAL EVALUATION ---
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 He reports the symptoms radiate to the R eardrum and denies clicking or locking. He relates he's lost 40 lbs. over the last several months due to his soft/liquid diet. I worked with Gary for Parkinsonism this year, but he relates that PD is ruled out and he has essential tremor. Pain location is R TMJ and described as tightness. Pain scale is 5 on a ten point pain scale. Pain is worse with chewing even soft foods and better with rest. REHAB PROBLEM LIST: Increased Pain Decreased ROM Decreased Function Decreased Gait PREVIOUS MEDICAL HISTORY: Schizophrenia, anxiety disorder, tremor. OCCUPATION: Unemployed, lives in a single level home. Reads (easy chair)/paces most of the day, per Gary, watches TV at night (recliner) and hikes on Saturday's with [employer]. OBJECTIVE: Posture: Sit and stand: Lumbar L lateral shift, increased thoracic kyphosis and R sidebent head. ROM: Jaw opening 3.0 cm with L then R deviation, closes with same deviation, no clicking. Jaw opening with cervical flexion and R rotation creates hypermobile R TMJ lateral translation. Lumbar AROM flexion WNL with mild L thoracic scoliosis standing, no scoliosis sitting, extension minimal. Thoracic AROM WNL flexion, 25% extension, R sidebend 50%, L sidebend WNL. Lower cervical flexion AROM 50% flexion, lower cervical extension minimal, upper cervical extension WNL, upper cervical flexion minimal. Strength: Core strength <3/5. Palpation: Tender R pterygoids, TMJ, digastric, suprahyoid, atrophy B masseters. Special Tests: Reduced R>L TMJ mobility, myofascial restrictions throughout the head/neck, trunk. Gait: Late heel strike B, flexed LE's and trunk posture, feet just pass each other. Gary turns with small steps, slowly with balance control. ASSESSMENT: Will Clifton presents with R TMJ dysfunction from poor posture, creating weight loss, altered diet/nutrition, tightness. He's started on a HEP for lumbar alignment, upper cervical stretching and jaw tracking, which will all need to be reinforced for carryover learning. Short Term Goals One month: Gary chew soft foods with R jaw tightness 1-2/10. Two months: Gary chews a full meal with R jaw tightness 0-1/10. Patient's Goals Eat regular food without R jaw pain. PLAN: Patient to be seen for Manual Therapy, Strengthening/condition, Range of Motion, Spinal Stabilization, Stretching, Neuromuscular Re-ed, Posture/Body mechanics, Gait Trg/Balance Trg, Home Exercise Program 2x/Week for 2 Months Thank you for this referral. If you have any questions, comments, or concerns about this report or plan, please contact me at . [facility]
--- NOTE | 2018-05-23 14:02 | PT PLAN OF CARE ---
Physician: Dr. 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 progressing Two months: Gary chews a full meal with R jaw tightness 0-1/10. not met PATIENT'S GOAL: Eat regular food without R jaw pain. not met Patient Compliance: Excellent Prognosis: Excellent Reasons for continuing therapy: S: Will relates he can now eat crackers, soft food for 5-10 chews before jaw tightness occurs. Posture: Sit and stand: Lumbar midline, increased thoracic kyphosis and midline head now. ROM: Jaw opening 5.0 cm with less deviation. Repeated jaw protrusion alleviates R TMJ pain. Lumbar AROM flexion WNL with mild L thoracic scoliosis standing, no scoliosis sitting, extension minimal. Thoracic AROM WNL flexion, 50% extension. Palpation: Tender R pterygoids, TMJ, digastric, suprahyoid, atrophy B masseters. Special Tests: Normal TMJ mobility, myofascial restrictions throughout the head/neck, trunk is improving. A/P: Will Clifton is improving his TMJ function and reducing pain, improving spinal alignment. If you agree, we'll continue at 2x/week for the last 3 weeks working to goals set. Thank you. YENNY
[~2018-06-23 11:15] MED LIST changes: +CHLO25TA19 PO; +DOCU-416 PO; +FLUV100T21 PO; +FLUV150C PO; +IBUP-1671 PO; +PROP20TA56 PO; +ZIPR40CA12 PO; +ZIPR40CA14 PO
--- NOTE | 2018-06-23 12:08 | PT PLAN OF CARE ---
Physician: Dr. 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 met Two months: Gary chews a full meal with R jaw tightness 0-1/10. not met, stops frequently for pain management. PATIENT'S GOAL: Eat regular food without R jaw pain. not met, pain 3-8/10. Patient Compliance: Excellent Prognosis: Excellent Reasons for discontinuing therapy: S: Will rates R TMJ pain 3-8/10 with chewing semi-firm foods, tightness and sharp pain. He's gained about 20 lbs. He can eat soft meat sandwiches, but not firm foods. Posture: Sit and stand: midline head and spinal column. ROM: Jaw opening 5.0 cm with midline tracking. Strength: Jaw opening, closing 4/5. Palpation: More robust B masseters. Special Tests: Normal B TMJ mobility. Will is unable to purse his lips together and has a soft "cluck". Gait with stiff legged (parkinsonism). A/P: Will Clifton has improved his jaw function with eating, gained weight and can eat soft sandwiches now. He still has facial muscle reduced function that is addressed with his HEP. After Will has his upper plate and adjusts to it, I would like to see him again to improve TMJ function, food chewing tolerance and facial muscle function (his parkinsonism presentation affects his face as well as his gait). I'll DC PT to HEP for now. Thank you. YENNY
== END 2018-06-23 18:00 | disposition home or self-care (01) ==
LOC: PT 11:15
PROVIDERS: ATTEND Dentist
DX: M26.601 Right temporomandibular joint disorder, unspecified (principal); M40.04 Postural kyphosis, thoracic region; R25.1 Tremor, unspecified; F20.9 Schizophrenia, unspecified; F41.9 Anxiety disorder, unspecified
CPT/HCPCS: 97162

== ENCOUNTER 2019-01-28 12:16 | Inpatient (IN) | payer BC ==
[~2019-01-28] VITALS: Ht 177.8 cm; Wt 87.1 kg
[2019-01-28] MEDS ORDERED: DEUT6TAB PO (12:25)
--- NOTE | 2019-01-28 12:37 | ER Report ---
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 Patient has a history of schizophrenia as well as generalized anxiety disorder and is on medications. Patient has a power of workers compensation defense attorney who asked to make his medical decisions resides in [facility]. Patient does have a history of prior alcohol abuse. According to the patient and care worker patient self discontinued his medications approximately 2 weeks ago and has been self- medicating with alcohol which is approximately 2 sixpacks of beer per day along with a small amount of whiskey. He denies any other illicit drug use. Patient is feeling anxious. REVIEW OF SYSTEMS: Constitutional: No fever, no chills. Eyes: No discharge. ENT: No sore throat. Cardiovascular: No chest pain, no palpitations. Respiratory: No cough, no shortness of breath. Gastrointestinal: No abdominal pain, no vomiting. Genitourinary: No hematuria. Musculoskeletal: No back pain. Skin: No rashes. Neurological: No headache. Psychiatric: Feeling anxious, off his Rx medications. Allergies: Coded Allergies: No Known Drug Allergies (Verified , 10/26/10) Home Meds Reported Medications Deutetrabenazine (Austedo) 6 Mg Tablet, 6 MG PO QDAY 01/28/19 Ibuprofen (MOTRIN IB) 200 Mg Tablet, 3 TAB PO Q6H PRN for PAIN 04/01/18 Chlorpromazine Hcl (CHLORPROMAZINE HCL) 25 Mg Tablet, 75 MG PO QHS THORAZINE. TAKE ABOUT AN HOUR BEFORE YOU PLAN TO GO TO SLEEP. 04/01/18 Fluvoxamine Maleate (FLUVOXAMINE MALEATE) 100 Mg Tablet, 100 MG PO QAM LUVOX 04/01/18 Docusate Sodium (COLACE) 100 Mg Capsule, 100 MG PO BID, CAPSULE 04/01/18 Fluvoxamine Maleate (FLUVOXAMINE MALEATE) 150 Mg Cap.er.24h, 150 MG PO QHS LUVOX. TAKE 1.5 TABLETS ABOUT AN HOUR BEFORE YOU PLAN TO GO TO SLEEP 03/25/18 Past Medical/Surgical History Past medical history for paranoid schizophrenia with admission 03/25/2018 also history of generalized anxiety disorder. Past history of self-mutilation. History of alcohol abuse in the past but quit in approximately 2002. Denies any other substance abuse. Hx Smoking: No Smoking Status: Never Smoker Exposure to Second Hand Smoke?: No Hx Substance Use Disorder: No Hx Alcohol Use: No Constitutional Vital Sign - Last 24 Hours 01/28/19 01/28/19 01/28/19 01/28/19 12:16 12:20 12:24 12:30 Pulse ??? Resp 20 B/P (MAP) 158/80 (106) 148/78 (101) 01/28/19 01/28/19 01/28/19 01/28/19 12:45 12:46 13:00 13:15 Pulse 81 B/P (MAP) 132/69 (90) 139/74 (95) 124/88 (100) Pulse Ox 93 01/28/19 01/28/19 01/28/19 01/28/19 13:16 13:30 13:45 13:46 Pulse 83 87 B/P (MAP) 127/74 (91) 130/78 (95) Pulse Ox 93 93 01/28/19 01/28/19 01/28/19 01/28/19 14:00 14:05 14:15 14:28 Pulse 90 B/P (MAP) 118/73 (88) 125/78 (94) 128/74 (92) Pulse Ox 88 Physical Exam General/Constitutional: Patient is awake, alert, nontoxic and in no acute respiratory distress. Head: Normocephalic and atraumatic. Eyes: Conjunctival clear, Pupils are equal and reactive to light. Extraocular muscles are intact and symmetrical. Sclera are clear and anicteric. Ears:External canals are clear. Tympanic membranes are clear with normal landmarks and light reflex. Neck: Supple, no adenopathy. Cardiovascular: Heart is regular rate and rhythm without audible murmurs, rubs or gallops. Pulmonary: Lungs are clear to auscultation bilaterally. There are no wheezes, rales, or rhonchi. Chest rise is symmetrical Abdomen: Soft, nontender, no guarding or peritoneal signs. Extremities: No gross deformities, No peripheral cyanosis. Able to move all 4 extremities. Neuro: Alert and oriented X3, Psychiatric: Patient anxious with some mild pressured speech but the patient is cooperative. Patient does not seem to be responding to any internal stimuli. Skin: No rashes, skin is warm dry and well perfused. Medical Decision Making Data Points Result Diagram: 01/28/19 1313 01/28/19 1313 Laboratory Hematology Test 01/28/19 13:13 White Blood Count 4.3 k/uL (4.5-11.0) L Red Blood Count 5.23 M/uL (4.00-5.60) Hemoglobin 16.9 g/dL (14.0-18.0) Hematocrit 48.0 % (42.0-52.0) Mean Corpuscular Volume 91.9 fL (80.0-96.0) Mean Corpuscular Hemoglobin 32.3 pg (26.0-33.0) Mean Corpuscular Hemoglobin Concent 35.2 g/dL (32.0-36.0) Red Cell Distribution Width 14.8 % (11.5-14.5) H Platelet Count 176 K/uL (150-450) Mean Platelet Volume 7.3 fL (7.2-11.1) Neutrophils (%) (Auto) 65.4 % (39.4-72.5) Lymphocytes (%) (Auto) 21.8 % (17.6-49.6) Monocytes (%) (Auto) 10.9 % (4.1-12.4) Eosinophils (%) (Auto) 0.9 % (0.4-6.7) Basophils (%) (Auto) 1.0 % (0.3-1.4) Nucleated RBC Relative Count (auto) 0.2 /100WBC Neutrophils # (Auto) 2.8 K/uL (2.0-7.4) Lymphocytes # (Auto) 0.9 K/uL (1.3-3.6) L Monocytes # (Auto) 0.5 K/uL (0.3-1.0) Eosinophils # (Auto) 0.0 K/uL (0.0-0.5) Basophils # (Auto) 0.0 K/uL (0.0-0.1) Nucleated RBC Absolute Count (auto) 0.01 K/uL Chemistry Test 01/28/19 13:13 Sodium Level 141 mmol/L (137-145) Potassium Level 4.0 mmol/L (3.5-5.0) Chloride Level 102 mmol/L (98-107) Carbon Dioxide Level 28 mmol/L (22-30) Blood Urea Nitrogen 17 mg/dl (9-21) Creatinine 0.90 mg/dl (0.66-1.25) Glomerular Filtration Rate Calc > 60.0 Random Glucose 100 mg/dl (75-110) Calcium Level 9.5 mg/dl (8.4-10.2) Magnesium Level 2.1 mg/dl (1.7-2.2) Total Bilirubin 1.0 mg/dl (0.2-1.3) Aspartate Amino Transf (AST/SGOT) 36 U/L (0-35) Alanine Aminotransferase (ALT/SGPT) 45 U/L (0-56) Alkaline Phosphatase 75 U/L (0-126) Total Protein 8.3 g/dl (6.3-8.2) Albumin 4.6 g/dl (3.5-5.0) Thyroid Stimulating Hormone (TSH) 1.01 uIU/ml (0.46-4.68) Toxicology Test 01/28/19 00:00 01/28/19 13:13 Urine Opiates Screen Negative Urine Barbiturates Screen Negative Ur Tricyclic Antidepressants Screen Negative Urine Phencyclidine Screen Negative Urine Amphetamines Screen Negative Urine Benzodiazepines Screen Negative Urine Cocaine Screen Negative Urine Cannabinoids Screen Negative Salicylates Level < 10 mg/L Salicylate Last Dose Date unk Acetaminophen Level < 10 ug/ml Serum Alcohol < 10 mg/dl Urinalysis Test 01/28/19 00:00 Urine Color Yellow Urine Clarity Clear Urine pH 7.0 pH (4.8-9.5) Urine Specific [place] 1.019 Urine Protein Negative mg/dL (NEGATIVE) Urine Glucose (UA) Negative mg/dL (NEGATIVE) Urine Ketones 20 mg/dL (NEGATIVE) Urine Blood Negative (NEGATIVE) Urine Nitrite Negative (NEGATIVE) Urine Bilirubin Negative (NEGATIVE) Urine Urobilinogen Negative mg/dL (0.2-1.9) Urine Leukocyte Esterase Negative (NEGATIVE) Urine RBC 1 /HPF (0-2/HPF) Urine WBC <1 /HPF (0-5/HPF) Urine Squamous Epithelial Cells None /LPF (</=FEW) Urine Bacteria Negative /HPF (NONE-FEW) Urine Mucus None /HPF (NONE-FEW) EKG/Imaging EKG Interpretation EKG today shows normal sinus rhythm with nonspecific T-wave abnormality prol onged QTC of 480 ms EKG was compared to 03/25/2018 at that time showed sinus bradycardia with first-degree AV block. His EKG with prolonged QTC is under 500 ms so I do not have a major concern with the length of the QT at this time. ED Course/Re-evaluation ED Course Plan at this time will be medical screening evaluation will contact the patient's power of workers compensation defense attorney likely admission for behavioral medicine. Decision to Disposition Date: Jan 28, 2019 Decision to Disposition Time: 14:43 Depart Departure Latest Vital Signs Vital Signs Date Time Temp Pulse Resp B/P (MAP) Pulse Ox O2 Delivery O2 Flow Rate FiO2 01/28/19 14:28 128/74 (92) 01/28/19 14:05 90 88 01/28/19 12:20 20 Impression: Primary Impression: Paranoid schizophrenia Additional Impression: Alcohol abuse Condition: Improved Disposition: XFER TO [facility] Referrals: ROSHNI LOZANO MD (PCP) Problem Qualifiers AYO VERDUZCO MD Jan 28, 2019 12:37
[2019-01-28] MEDS ORDERED: DIAZEPAM 10 MG TAB PO ONE (13:05)
[2019-01-28 13:24] LABS: PLATELET COUNT, AUTOMATED 176 K/uL (150-450)
--- NOTE | 2019-01-28 14:27 | EKG ---
FACILITY: [facility] PATIENT NAME: ELAINA AMANDA : [id number] MR: [id number] V: [id number] EXAM DATE: ORDERING PHYSICIAN: AYO VERDUZCO TECHNOLOGIST: DARRELL Test Reason : ALCHOL RELAPSE Blood Pressure : / mmHG Vent. Rate : 085 BPM Atrial Rate : 085 BPM P-R Int : 198 ms QRS Dur : 084 ms QT Int : 404 ms P-R-T Axes : 063 012 060 degrees QTc Int : 480 ms Normal sinus rhythm Nonspecific T wave abnormality Prolonged QT Abnormal ECG When compared with ECG of 25-MAR-2018 15:12, SC interval has decreased Vent. rate has increased BY 31 BPM Nonspecific T wave abnormality now evident in Anterior leads Confirmed by ROSHNI SERNA ([id number]) on 01/28/2019 4:58:23 PM Referred By: LUBA Confirmed By:ROSHNI SERNA
[2019-01-28 14:53] VITALS: BP 148/80
[2019-01-28] MEDS ORDERED: MAG HYD/AL HYD/SIMETH 30ML UDC PO PRN (15:15)
[2019-01-28] MEDS: DIAZEPAM 10 MG TAB PO PRN ×2 (15:29→21:07)
[2019-01-28 17:21] VITALS: BP 119/89
[2019-01-28] MEDS: fluvoxaMINE MALEATE 50 MG TAB PO SCH (20:28)
[2019-01-28] MEDS: DOCUSATE SODIUM 100 MG CAP PO SCH (20:29)
[2019-01-28 20:50] VITALS: BP 115/81
[2019-01-28] MEDS: chlorproMAZINE 25 MG TAB PO SCH (21:00)
[2019-01-29 06:00] VITALS: BP 123/72
[2019-01-29] MEDS: DOCUSATE SODIUM 100 MG CAP PO SCH ×2 (08:18→20:31)
[2019-01-29] MEDS: MULTIVITAMINS TAB PO SCH (08:19)
[2019-01-29] MEDS: FOLIC ACID 1 MG TAB PO SCH (08:19)
[2019-01-29] MEDS: fluvoxaMINE MALEATE 50 MG TAB PO SCH ×2 (08:19→20:29)
[2019-01-29] MEDS: THIAMINE HCL 100 MG TAB PO SCH (08:19)
[2019-01-29 09:35] VITALS: BP 110/80
[2019-01-29] MEDS: DIAZEPAM 10 MG TAB PO PRN ×2 (09:50→20:32)
[2019-01-29] MEDS: DEUTETRABENAZINE 6 MG PO SCH ×2 (09:50→20:28)
[2019-01-29 10:40] VITALS: BP 122/80
[2019-01-29 14:00] VITALS: BP 114/80
[2019-01-29 18:00] VITALS: BP 124/84
[2019-01-29] MEDS: chlorproMAZINE 25 MG TAB PO SCH (20:30)
[2019-01-29] MEDS ORDERED: MIRTAZAPINE 15 MG TAB PO SCH (21:00)
[2019-01-30 05:34] VITALS: BP 128/69
[2019-01-30] MEDS: DEUTETRABENAZINE 6 MG PO SCH ×2 (08:17→20:37)
[2019-01-30] MEDS: DOCUSATE SODIUM 100 MG CAP PO SCH ×2 (08:18→20:38)
[2019-01-30] MEDS: MULTIVITAMINS TAB PO SCH (08:18)
[2019-01-30] MEDS: FOLIC ACID 1 MG TAB PO SCH (08:18)
[2019-01-30] MEDS: fluvoxaMINE MALEATE 50 MG TAB PO SCH ×2 (08:18→20:37)
[2019-01-30] MEDS: THIAMINE HCL 100 MG TAB PO SCH (08:18)
--- NOTE | 2019-01-30 08:45 | SCHAAF H&P ---
DATE OF ADMISSION: January 28, 2019 Patient was seen at approximately 1000 hours on January 29, 2019 for note concerning this dictation. ATTENDING PHYSICIAN Cruz Jorgensen MD PRESENTING PROBLEM/CHIEF COMPLAINT Patient presenting voluntarily with the help of his outpatient coordinators through [facility] for alcohol withdrawal treatment. HISTORY OF PRESENT ILLNESS This is is a fairly well-known 58-year old male well known to this provider from previous admissions to this hospital as well as history of outpatient care with this provider. Patient suffers from underlying generalized anxiety disorder and schizophrenia. Patient also has a remote history of significant alcoholism. Patient had been free from alcohol for a period of roughly 16 years. Patient reports that he went hiking and came back and drank a beer that was in his refrigerator for quite some time. Patient reports then he started drinking increasing amounts over the last two to three weeks. Patient then stating he tried to quit at home, could not. Patient again admitted voluntarily for help with alcohol withdrawal. Patient denying any other symptoms of schizophrenia that are not considered above baseline in this patient. Patient historically has been doing very well regarding other diagnoses including chronic alcohol use disorder. Patient denying any other concerns. Patient interacting well. MENTAL HEALTH HISTORY Patient was hospitalized in 2010 here at [facility] for initial hospitalization of what appeared to be a very longstanding psychosis that had been relatively untreated. Patient had been living at home at that time. Patient continues to follow up through [facility] but is unknown at this time who his outpatient medication provider is but patient remains relatively stable from a schizophrenic standpoint. Patient had a suicide attempt where he cut his wrist in a remote history and patient had been admitted to psychiatric wards in the past prior to his first hospitalization here at [facility] in 2010. FAMILY PSYCHIATRIC HISTORY Past reports indicate possible schizophrenic type illness in the patient's great grandmother on the mother's side. Mother and father had some history of alcohol abuse as well and no suicides are believed to have occurred in the family history. PAST MEDICAL HISTORY During initial admission here in 2010 to [facility], patient was noted to have extremely limited gait as a result of the largely untreated longstanding psychotic condition. This resolved and continues to be resolved at this time. The impaired gait in 2010 may have been related to some level from complications from longstanding antipsychotic therapy but, again, underlying psychosis was untreated at this time. Patient does appear to have some tardive dyskinesia as well. Patient also reported a seizure in 1986 that was not related to alcohol detoxification. SOCIAL HISTORY The patient was born in [place] and raised in [place]. Parents were at the time of his . Past reports indicate his mother in 1986. The patient's father is believed to have passed within the last two years. He was the only child in his family. He continues to live independently with the help of [facility]. Patient does have a guardian. Patient was a high school graduate and was reported to be average to above-average student according to his father in the past. 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 Patient is not believed to have a significant other currently and is believed to have never and has no children and is believed to be heterosexual. LEGAL HISTORY No significant legal history. SUBSTANCE ABUSE HISTORY Patient had very heavy alcohol consumption in early . Patient does not use cigarettes or other tobacco products. Has recently relapsed in increasing alcohol use including beer and whiskey over the last two to three weeks. Otherwise, had been free of all alcohol for a period of around 16 years. He denies any other past or present history of substance abuse. PHYSICAL EXAMINATION Please see emergency room note. Notable for cooperative 58-year old male, thin body habitus. Underlying baseline psychotic condition is clinically evident. However, patient is again considered baseline from a psychosis standpoint in his interactions with this provider. Vital signs at the time of admission: Temperature 99.4, pulse 86, respiratory rate 16, blood pressure 148/80 and pulse oximetry slightly low at 88% on room air. LABORATORY DATA CBC at time of admission notable for white blood cells low at 4.3. Also notable MCV and MCH within normal limits as well as platelet count in somewhat low normal limits at 176. Chemistry panel notable for total bilirubin in normal limits at 1.0 with a mild elevation of AST at 36, ALT in normal limits at 43, TSH 1.01 and unremarkable. Urinalysis was notable for urine ketones. Otherwise unremarkable. Toxicology screen negative for substances of abuse, notably negative for any serum alcohol. At time of admission, patient reported his last drink around 4 a.m. prior to admission. MENTAL STATUS EXAMINATION GENERAL APPEARANCE, BEHAVIOR AND ATTITUDE: This is a well-known 58-year old male to this provider. Patient able to recognize this provider from remote contrast. Patient making good eye contact. No gross psychomotor agitation or retardation evident. Patient currently being treated with diazepam per [facility] protocol. Likely dyskinetic movements from history of antipsychotic use evident in left upper extremity during initial conversation. Patient nontearful. Again, making good eye contact, which historically was difficult for this patient. SPEECH: Considered largely within normal limits. Regular rate, rhythm, volume and tone. Considered baseline for this patient. MOOD: Okay. AFFECT: Constricted to flat at time, which would again be considered baseline for this patient with underlying psychotic condition. THOUGHT PROCESSES: Appear logical and goal-directed. Patient indicating a desire to get alcohol withdrawal treated to completion, return home and remain abstinent from alcohol. No gross loose associations or flight of ideas could be detected. THOUGHT CONTENT: Patient denies any gross positive symptoms that he is currently recognizing related to underlying psychotic condition and no obvious evidence of auditory or visual hallucinations during conversation existed and patient adamantly denying suicidal or homicidal ideations. SENSORIUM: Clear. COGNITION: Alert and oriented to person, place, time and situation. MEMORY: Immediate, recent and remote estimated intact. INTELLIGENCE: Historically average to above based on previous knowledge of this patient. INSIGHT AND JUDGMENT: Considered grossly intact as patient working closely with outpatient providers and has been doing very well in the community and quickly recognized that relapse and alcohol use was a problem. Patient coming for treatment. ASSESSMENT Well-known 58-year old male with underlying psychotic condition, generalized anxiety disorder and remote history of severe alcoholism. Patient had recent relapse after many, many years of remaining alcohol free. Patient desires to return to abstinent life and will continue with outpatient treatment with [facility] and outpatient med provider upon discharge. DIAGNOSES 1. Alcohol withdrawal. 2. Alcohol use disorder, moderate. 3. Generalized anxiety disorder. 4. Residual schizophrenia at this time and patient known to have supportive relationship with outpatient care. PLAN 1. Admit to the unit. 2. Necessary precautions will be implemented. 3. Patient will participate in individual and group therapy. 4. Medications will be administered and titrated accordingly. We will treat alcohol withdrawal with diazepam. 5. Collateral information to be obtained as necessary from outpatient providers. 6. Estimated length of stay 3 to 5 days. MTDD
[2019-01-30 09:30] VITALS: BP 128/64
--- NOTE | 2019-01-30 12:44 | BHS Progress Note ---
[facility] - Subjective Progress Notes Subjective Alcohol withdrawal continues, but nearing completion. Will arrange for Discharge Saturday, in this patient who has recent relapse into alcohol use, on top of chronic persisting mental illness. Patient notably interacting well today, and denies any symptoms of underlying psychosis. No medication changes, no other concerns. Suicidal Ideation: None Homicidal Ideation: None [facility] - Objective Physical Exam Vital Signs Vital Signs Date Time Temp Pulse Resp B/P (MAP) Pulse Ox O2 Delivery O2 Flow Rate FiO2 01/30/19 09:30 98.0 89 16 128/64 (85) 89 Room Air 01/30/19 05:34 2.0 Muscle Strength and Tone: WNL Gait and Station: Steady S Medications Reviewed: Side Effects, Benefits of Medication, Risks Allergies Reviewed: Yes Mental Status Exam General Appearance: Casual, Well Groomed, Good Eye Contact, Cooperative, Polite, Good Interaction; No Tearful, No Psychomotor Agitation, No Psychomotor Retardation; Bizarre Mannerisms (baseline) Speech: Clear, Spontaneous, Normal Rate, Normal Rhythm, Normal Volume, Normal Tone; No Slurred, No Garbled, No Rambling, No Inappropriate Mood: Dysthmic/Depressed (some mild depressive symptoms, ) Affect: Calm, Neutral; No Tearful, No Anxious, No Agitated Thought Process: Organized, Logical, Goal Directed; No Loose Associations, No Flight of Ideas Thought Content: No Suicidal Ideation, No Homicidal Ideation; Delusions (likely present but minimal); No Auditory Halllucinations (denies), No Thought Broadcasting, No Ideas of Reference, No Obsessions, No Compulsions Sensorium: Clear Cognition: Alert & Oriented-Person, Alert & Oriented-Place, Alert & Oriented- Time, [id number] Memory: Immediate, Recent, Remote Intelligence: Average Insight Judgment: Fair (in absence of alcohol ) Result Diagram: 01/28/19 1313 01/28/19 1313 [facility] Assessment and Plan Tdbk-ps-Xohy Encounter Date: Jan 30, 2019 [id number] Encounter Time: 10:00 [facility] Plan: Necessary Precautions, Individual/Group Therapy, Admin/Titrate Meds, Educate Patient Tobacco Medications: Not Appropriate Condition Multpiple Antipsychotics Used: No Problems: (1) Alcohol use disorder, moderate, in early remission Status: Chronic (2) Alcohol withdrawal Status: Acute (3) Paranoid schizophrenia Status: Chronic (4) Generalized anxiety disorder Status: Chronic Condition 1. continue current medications. 2. plan for discharge Saturday. Problem Qualifiers (1) Alcohol withdrawal: Complication of substance-induced condition: uncomplicated Qualified Codes: F10.230 - Alcohol dependence with withdrawal, uncomplicated TAN VO MD Jan 30, 2019 12:44
[2019-01-30 13:30] VITALS: BP 132/72
[2019-01-30] MEDS: chlorproMAZINE 25 MG TAB PO SCH (20:37)
[2019-01-30 21:22] VITALS: BP 143/87
[2019-01-30] MEDS: DIAZEPAM 10 MG TAB PO PRN (21:42)
[2019-01-31 06:03] VITALS: BP 112/65
[2019-01-31] MEDS: MULTIVITAMINS TAB PO SCH (08:17)
[2019-01-31] MEDS: DOCUSATE SODIUM 100 MG CAP PO SCH ×2 (08:17→20:52)
[2019-01-31] MEDS: FOLIC ACID 1 MG TAB PO SCH (08:17)
[2019-01-31] MEDS: fluvoxaMINE MALEATE 50 MG TAB PO SCH ×2 (08:17→20:52)
[2019-01-31] MEDS: THIAMINE HCL 100 MG TAB PO SCH (08:17)
[2019-01-31] MEDS: DEUTETRABENAZINE 6 MG PO SCH ×2 (08:19→20:52)
[2019-01-31 13:31] VITALS: BP 122/76
--- NOTE | 2019-01-31 17:01 | BHS Progress Note ---
S - Subjective Progress Notes Subjective Pt seen in conference room with team. Pt says he feels a little groggy today. He did had 10 mg of valium last night and did sleep well. But we discussed stopping valium altogether now, and tonight he would like to try some milk and a banana to help him sleep-- his usual routine at home. He did have some urges to use alcohol today and we discussed his 16 years of sobriety, his recent relapse, and coping strategies for urges to drink. He has not been an AA member, but says he does appreciate talking to his therapist, going for walks. Tolerating Luvox, thorazine and [place]edo well without side effects-- Parkinsonian-type tremor and gait are present but he says they don't bother him. Continue current tx plan, for tentative DC Saturday. Suicidal Ideation: None Homicidal Ideation: None S - Objective Physical Exam Vital Signs Vital Signs 01/31/19 01/31/19 06:03 13:31 Temp 98.6 Pulse 89 Resp 16 B/P (MAP) 122/76 (91) Pulse Ox 90 O2 Delivery Room Air O2 Flow Rate 2.0 Muscle Strength and Tone: WNL Gait and Station: Steady [facility] Medications Reviewed: Side Effects, Benefits of Medication, Risks Allergies Reviewed: Yes Mental Status Exam General Appearance: Casual, Well Groomed, Good Eye Contact, Cooperative, Polite, Good Interaction; No Tearful, No Psychomotor Agitation, No Psychomotor Retardation; Other (pacs up and down the akins, has Parkinsonian tremor and gait.) Speech: Clear, Spontaneous, Normal Rate, Normal Rhythm, Normal Volume, Normal Tone; No Slurred, No Garbled, No Rambling, No Inappropriate Mood: Dysthmic/Depressed (some mild depressive symptoms, ) Affect: Calm, Neutral; No Tearful, No Anxious, No Agitated Thought Process: Organized, Logical, Goal Directed; No Loose Associations, No Flight of Ideas Thought Content: No Suicidal Ideation, No Homicidal Ideation; Delusions (chronic); No Auditory Halllucinations, No Visual Hallucinations, No Thought Broadcasting, No Ideas of Reference, No Obsessions, No Compulsions, No Other Sensorium: Clear Cognition: Alert & Oriented-Person, Alert & Oriented-Place, Alert & Oriented- Time, Hewya-Kolwtbzb-[id number] Memory: Immediate, Recent, Remote Intelligence: Average Insight Judgment: Fair (in absence of alcohol ) Result Diagram: 01/28/19 1313 01/28/19 1313 [facility] Assessment and Plan Nann-qo-Osqj Encounter Date: Jan 31, 2019 Cebr-xa-Loyl Encounter Time: 09:30 [facility] Plan: Necessary Precautions, Individual/Group Therapy, Admin/Titrate Meds, Educate Patient Tobacco Medications: Not Appropriate Condition Multpiple Antipsychotics Used: No Problems: (1) Paranoid schizophrenia Status: Chronic (2) Alcohol use disorder, moderate, in early remission Status: Chronic SY RODRIGUEZ MD Jan 31, 2019 17:01
[2019-01-31 19:29] VITALS: BP 128/85
[2019-01-31] MEDS: chlorproMAZINE 25 MG TAB PO SCH (20:53)
[2019-02-01 06:02] VITALS: BP 126/74
[2019-02-01] MEDS: FOLIC ACID 1 MG TAB PO SCH (08:11)
[2019-02-01] MEDS: MULTIVITAMINS TAB PO SCH (08:12)
[2019-02-01] MEDS: fluvoxaMINE MALEATE 50 MG TAB PO SCH ×2 (08:12→21:13)
[2019-02-01] MEDS: THIAMINE HCL 100 MG TAB PO SCH (08:12)
[2019-02-01] MEDS: DOCUSATE SODIUM 100 MG CAP PO SCH ×2 (08:12→21:13)
[2019-02-01] MEDS: DEUTETRABENAZINE 6 MG PO SCH ×2 (08:17→21:12)
[2019-02-01 14:05] VITALS: BP 128/72
--- NOTE | 2019-02-01 15:51 | BHS Progress Note ---
[facility] - Subjective Progress Notes Subjective Pt seen in conference room with team. Pt doing OK, no c/o. Says he slept well and that eating a banana and drinking a glass of milk helped him sleep. He denies any urges to drink alcohol today. We offered to call some AA members to come talk with him about the program, but he feels he does not want to pursue meetings at this time since he had 16 years sobriety previously without attending meetings. Denies AH, feels his meds are helpful. Discussed efficacy of luvox for both depression and anxiety. Likely discharge tomorrow to home with in-home services from [facility]. Suicidal Ideation: None Homicidal Ideation: None [facility] - Objective Physical Exam Vital Signs Vital Signs 02/01/19 02/01/19 06:02 14:05 Temp 99.2 Pulse 82 Resp 16 B/P (MAP) 128/72 (90) Pulse Ox 88 O2 Delivery Room Air O2 Flow Rate 2.0 Muscle Strength and Tone: WNL Gait and Station: Steady [facility] Medications Reviewed: Side Effects, Benefits of Medication, Risks Allergies Reviewed: Yes Mental Status Exam General Appearance: Casual, Well Groomed, Good Eye Contact, Cooperative, Polite, Good Interaction; No Tearful, No Psychomotor Agitation, No Psychomotor Retardation; Other (pacs up and down the akins, has Parkinsonian tremor and gait.) Speech: Clear, Spontaneous, Normal Rate, Normal Rhythm, Normal Volume, Normal Tone; No Slurred, No Garbled, No Rambling, No Inappropriate Mood: Dysthmic/Depressed (some mild depressive symptoms, ) Affect: Calm, Neutral; No Tearful, No Anxious, No Agitated Thought Process: Organized, Logical, Goal Directed; No Loose Associations, No Flight of Ideas Thought Content: No Suicidal Ideation, No Homicidal Ideation; Delusions (chronic); No Auditory Halllucinations, No Visual Hallucinations, No Thought Broadcasting, No Ideas of Reference, No Obsessions, No Compulsions, No Other Sensorium: Clear Cognition: Alert & Oriented-Person, Alert & Oriented-Place, Alert & Oriented- Time, Meymj-Ouwghxyz-Grkuqgraj Memory: Immediate, Recent, Remote Intelligence: Average Insight Judgment: Fair (in absence of alcohol ) Result Diagram: 01/28/19 1313 01/28/19 1313 [facility] Assessment and Plan [facility]fta-[id number] Encounter Date: Feb 01, 2019 [id number] Encounter Time: 09:30 [facility] Plan: Necessary Precautions, Individual/Group Therapy, Admin/Titrate Meds, Educate Patient Tobacco Medications: Not Appropriate Condition Multpiple Antipsychotics Used: No Problems: (1) Paranoid schizophrenia Status: Chronic (2) Alcohol use disorder, moderate, in early remission Status: Chronic SY RODRIGUEZ MD Feb 01, 2019 15:51
[2019-02-01 20:11] VITALS: BP 121/81
[2019-02-01] MEDS: chlorproMAZINE 25 MG TAB PO SCH (21:14)
[2019-02-02 05:19] VITALS: BP 122/71
[2019-02-02] MEDS: DEUTETRABENAZINE 6 MG PO SCH (08:08)
[2019-02-02] MEDS: fluvoxaMINE MALEATE 50 MG TAB PO SCH (08:08)
[2019-02-02] MEDS: MULTIVITAMINS TAB PO SCH (08:08)
[2019-02-02] MEDS: THIAMINE HCL 100 MG TAB PO SCH (08:08)
[2019-02-02] MEDS: DOCUSATE SODIUM 100 MG CAP PO SCH (08:08)
[2019-02-02] MEDS: FOLIC ACID 1 MG TAB PO SCH (08:08)
[2019-02-02 11:38] VITALS: BP 128/83
[2019-02-02] MEDS ORDERED: DEUT6TAB PO (12:52)
[2019-02-02] MEDS ORDERED: MULT-7 (12:54)
--- NOTE | 2019-02-03 15:02 | SCHAAF DISCHARGE ---
DATE OF ADMISSION: January 28, 2019 DATE OF DISCHARGE: February 02, 2019 ATTENDING PHYSICIAN Cruz Jorgensen MD Patient was seen approximately 0830 hours on the a.m. of 02 February 2019 for note concerning this dictation. FINAL DIAGNOSES 1. Alcohol use disorder, moderate. 2. Alcohol withdrawal, considered complete. 3. Schizophrenia, residual. 4. Patient has a well-known history of good support through [facility] here in the [facility]. REASON FOR ADMISSION This is a very pleasant 58-year-old male who suffers from underlying schizophrenia that has been well managed over the recent years, patient historically doing very in the community now. Patient has a history of significant alcoholism in his remote past as well, but has been free and sober for 16 years. Patient had a recent relapse, tried to stop drinking on his own, unable to do so. Patient was brought in for management of any alcohol withdrawal to return patient back to the community. Patient's alcohol withdrawal was treated to completion with diazepam per [facility] protocol. Patient exhibiting no positive symptoms of schizophrenia that were not associated with baseline behavior, and after alcohol withdrawal was treated to completion, patient was discharged back to home. PHYSICAL EXAMINATION Please see emergency room note. Notable for: GENERAL: A 58-year-old male in no acute distress medical distress. VITAL SIGNS: At time of admission, temperature 99.4, pulse 86, respiratory rate 16, blood pressure 148/80, and pulse oximetry 88% on room air. At time of discharge, temperature showed 98.5, pulse 90, respiratory rate 15, blood pressure 128/83, and pulse oximetry 91% on room air. LABORATORY DATA CBC notable for white blood cells slightly low at 4.3 upon admission; otherwise unremarkable. AST elevated slightly at 36 upon admission; otherwise unremarkable CMP. TSH of 1.01, in normal range. Urinalysis notable for urine ketones; otherwise unremarkable. Toxicology screen was negative for substances of abuse and an undetectable serum alcohol level upon admission. MENTAL STATUS EXAMINATION UPON DISCHARGE GENERAL APPEARANCE, BEHAVIOR, AND ATTITUDE: This is a 58-year-old male, fairly well known to this provider. Patient interacting appropriately, making good eye contact. No grossly bizarre mannerisms. Patient not tearful. SPEECH: Within normal limits. Regular rate, rhythm, volume, and tone. MOOD: Described as overall good. AFFECT: Constricted and considered baseline for this patient. THOUGHT PROCESSES: Patient seemed goal directed, wanting to return to the community and work with [facility] and abstain from alcohol. Logical overall. No loose associations or flight of ideas. THOUGHT CONTENT: Patient denying any auditory or visual hallucinations, although baseline hallucinations could be present. Patient not troubled, denying ideas of reference or thought broadcastings or any delusional content, although it is likely that some baseline thoughts remain. No obsessions or compulsions. No suicidal or homicidal ideations. SENSORIUM: Clear. COGNITION: Alert and oriented to person, place, time, and situation. MEMORY: Immediate, recent, and remote was estimated intact. INTELLIGENCE: Average to above based on interview and historical data. INSIGHT AND JUDGMENT: Considered appropriate for ongoing outpatient management in the absence of alcohol use. RESULTS OF TESTING Imaging: None. Laboratory data: See above. CONSULTATIONS None. TREATMENT Patient received medications, participated in individual and group therapy. HOSPITAL COURSE Patient interacting very well on the unit, requiring a minimal amount of diazepam for effective management of alcohol withdrawal per [facility] protocol. Patient remained on other outpatient medications while on the unit with good results. Patient exhibiting no suicidal or homicidal behavior, and patient's underlying diagnosis of schizophrenia appears to be baseline and residual at this point. CONDITION OF PATIENT ON DISCHARGE Stable. Considered a minimal risk to himself or others in the absence of alcohol use. DISPOSITION Patient would discharged to home. Continue to follow up with outpatient management orchestrated by [facility]. Patient agreed to abstain from all alcohol. Crisis line was given should symptoms return. DISCHARGE MEDICATIONS Patient would continue: 1. Austedo 6 mg twice daily. 2. Colace 100 mg twice daily. 3. Luvox 100 mg daily and Luvox 150 mg at bedtime. 4. Thorazine 75 mg at bedtime. 5. Multivitamin with minerals daily. No scripts were written. PLAN Crisis line was given should symptoms return. Risks, benefits, and alternatives of the above discharge plan were discussed. Informed consent was given to proceed with the above discharge plan by this patient, [facility], and patient's guardian, who lives in [place]. [facility]
== END 2019-02-02 13:22 | disposition home or self-care (01) | DRG 885 ==
LOC: ER 12:47 → BHS 14:41
PROVIDERS: ADMIT Psychiatry & Neurology Psychiatry; ATTEND Psychiatry & Neurology Psychiatry
DX: F20.0 Paranoid schizophrenia (principal); F10.21 Alcohol dependence, in remission; Z91.5 Personal history of self-harm; Z81.1 Family history of alcohol abuse and dependence; Z81.8 Family history of other mental and behavioral disorders
CPT/HCPCS: 36415; 80305; 80320; 80329; 81001; 82040; 82247; 82310; 82374; 82435; 82565; 82947; 83735; 84075; 84132; 84155; 84295; 84443; 84450; 84460; 84520; 85025; 93005; Q0161